=== PATIENT | male | born 1990 | race Two or more races ===

== ENCOUNTER 2017-01-11 21:02 | Emergency (ER) ==
[2017-01-11 21:12] VITALS: BP 157/71; BMI 24.3
[2017-01-11] MEDS ORDERED: TYLENOL PO STA (21:20)
--- NOTE | 2017-01-11 21:21 | ED.PDOC ---
General ED Provider: Dr. NICKY ROTH Chief Complaint: Fever Stated Complaint: been having fever since , hurting all over. has nausea vomitings on , but none after that. Time Seen by Physician: 21:19 Mode of Arrival: Walk-In Information Source: Patient Nursing and Triage Documentation Reviewed and Agree: Yes Miscellaneous Complaint Exam - Febrile Illness/Adult Complaint/Exam Symptoms Are: Still present Timing: Constant Episodes Lasting: Days Initial Severity: Moderate Current Severity: Mild Aggravating: Reports: Unknown Alleviating: Reports: None Associated Signs and Symptoms: Denies: Headache, Fluid intake, Short of air, Cough, Sore throat, Nausea, Vomiting, Chills, Diaphoresis, Dysuria, Arthralgia, Stiff neck, Myalgia, Rash, Altered mental status Related History: Reports: Similar episode Pseudomonas Risk Factors: Reports: None Serious Bacterial Infection Risk Factors: Reports: None Related Surgical History: None Specific Findings: Absent: Meningeal signs, Diaphoresis, Joint swelling, Erythema Differential Diagnoses: Sepsis, Viremia Review of Systems - Review Of Systems Constitutional: Reports: Malaise, Weakness Eyes: Reports: No symptoms Ears, Nose, Mouth, Throat: Reports: No symptoms Respiratory: Reports: No symptoms Cardiac: Reports: No symptoms GI: Reports: No symptoms : Reports: No symptoms Musculoskeletal: Reports: No symptoms Skin: Reports: No symptoms Neurological: Reports: No symptoms Endocrine: Reports: No symptoms Hematologic/Lymphatic: Reports: No symptoms All Other Systems: Reviewed and Negative Past Medical History - Past Medical History Previously Healthy: Yes Endocrine: Reports: None Cardiovascular: Reports: None Respiratory: Reports: None Hematological: Reports: None Gastrointestinal: Reports: None Genitourinary: Reports: None Neuro/Psych: Reports: None Musculoskeletal: Reports: None Cancer: Reports: None - Surgical History General Surgical History: Reports: None - Family History Family History: Reports: None - Social History Smoking Status: Never smoker Hx Substance Use: No Alcohol Screening: Occasionally Physical Exam - Physical Exam Appearance: Ill-appearing, No pain distress, Well-nourished Eyes: SEFERINO, EOMI, Conjunctiva clear ENT: Ears normal, Nose normal, Oropharynx normal Respiratory: Airway patent, Breath sounds clear, Breath sounds equal, Respirations nonlabored Cardiovascular: RRR, Pulses normal, No rub, No murmur GI/: Soft, Nontender, No masses, Bowel sounds normal, No Organomegaly Musculoskeletal: Normal strength, ROM intact, No edema, No calf tenderness Skin: Warm, Dry, Normal color Neurological: Sensation intact, Motor intact, Reflexes intact, Cranial nerves intact, Alert, Oriented Psychiatric: Affect appropriate, Mood appropriate Re-Evaluation - Re-Evaluation Time of Re-Evaluation: 22:28 Status: Improved Critical Care Note - Critical Care Note Total Time (mins): 0 Course - Course Hematology/Chemistry: 01/11/17 21:20 01/11/17 21:20 Orders, Labs, Meds: Lab Review 01/11/17 01/11/17 01/11/17 21:20 21:26 21:32 WBC 9.58 RBC 4.68 L Hgb 13.5 L Hct 40.4 L MCV 86.3 MCH 28.8 MCHC 33.4 RDW Coeff of Evan 13.5 Plt Count 193 Immature Gran % (Auto) 0.3 Neut % (Auto) 75.3 Lymph % (Auto) 14.9 [place] % (Auto) 9.0 Eos % (Auto) 0.2 Baso % (Auto) 0.3 Immature Gran # (Auto) 0.0 Neut # 7.2 H Lymph # 1.4 [place] # 0.9 Eos # 0.0 Baso # 0.0 Sodium 136 Potassium 4.1 Chloride 99 Carbon Dioxide 26 Anion Gap 15.1 BUN 12 Creatinine 1.23 H Estimated GFR (MDRD) 71.00 BUN/Creatinine Ratio 9.75 Glucose 116 H Lactic Acid 10.1 Calcium 8.6 Total Bilirubin 0.56 AST 41 H ALT 63 Alkaline Phosphatase 71 Total Protein 7.8 Albumin 3.5 Globulin 4.3 Albumin/Globulin Ratio 0.81 Procalcitonin 0.08 Urine Color Radha Urine Clarity Clear Urine pH 7.5 Ur Specific [place] 1.020 Urine Protein 1+ Urine Glucose (UA) Negative Urine Ketones Negative Urine Blood Trace-intact Urine Nitrite Negative Urine Bilirubin Negative Urine Urobilinogen >=8.0 Ur Leukocyte Esterase Negative Urine Microscopic RBC 2-5 Ur Squamous Epith Cells 2-5 Influenza A (Rapid) Negative Influenza B (Rapid) Negative Orders Category Date Time Status CBC W/ AUTO DIFF Stat LAB 01/11/17 21:20 Completed COMPREHENSIVE METABOLIC PANEL Stat LAB 01/11/17 21:20 Completed EHRLICHIA DNA, PCR Stat LAB 01/11/17 21:20 Received LACTIC ACID Stat LAB 01/11/17 21:20 Completed LYME, WESTERN BLOT, SERUM Stat LAB 01/11/17 21:20 Received PROCALCITONIN Stat LAB 01/11/17 21:20 Completed RAPID FLU A/B Stat LAB 01/11/17 21:26 Completed FRANCES PAULINO SPOTTED FEVER,IgM Stat LAB 01/11/17 21:20 Received UA [URINALYSIS C & S IF INDICATED] Stat LAB 01/11/17 21:32 Completed WEST NILE VIRUS PCR Stat LAB 01/11/17 21:20 Received Acetaminophen [Tylenol] MEDS 01/11/17 21:20 Discontinued 650 mg PO ONCE STA CXR [CHEST, 2 VIEWS PA & LAT] Stat RADS 01/11/17 21:20 Taken Medications Discontinued Medications Generic Name Dose Route Start Last Admin Trade Name Freq PRN Reason Stop Dose Admin Acetaminophen 650 mg 01/11/17 21:20 01/11/17 21:26 Tylenol PO 01/11/17 21:21 650 mg ONCE STA Administration Vital Signs: Temp Pulse Resp BP Pulse Ox 01/11/17 22:19 99.7 F H 01/11/17 21:02 102.7 F H 95 H 20 157/71 H 96 Departure - Departure Time of Disposition: 22:27 Disposition: HOME SELF-CARE Discharge Problem: Febrile illness Instructions: Viral Syndrome (ED) Condition: Stable Pt referred to PMD for follow-up: Yes Additional Instructions: INCREASE HYDRATION TYLENOL PRN F/U [facility] IN 3-4 DAYS Allergies/Adverse Reactions: Allergies No Known Allergies Allergy (Unverified 01/11/17 21:05) Home Medications: Ambulatory Orders 1 [No Reported Medications] 01/11/17 Disposition Discussed With: Patient, Family
[2017-01-11 21:29] LABS: BASOPHILS % (AUTO) 0.3 % (0.0-3.0); EOSINOPHILS % (AUTO) 0.2 % (0.0-7.0); HEMATOCRIT 40.4 % (42.0-52.0); HEMOGLOBIN 13.5 g/dl (14.0-18.0); IMMATURE GRANULOCYTE % (AUTO) 0.3 % (0.0-5.0); LYMPHOCYTES # (AUTO) 1.4 K/uL (0.60-3.4); LYMPHOCYTES % (AUTO) 14.9 (10.0-50.0); MEAN CORPUSCULAR HEMOGLOBIN 28.8 pg (27.0-31.0); MEAN CORPUSCULAR HGB CONC 33.4 (31.8-35.4); MEAN CORPUSCULAR VOLUME 86.3 fl (80.0-94.0); MONOCYTES # (AUTO) 0.9 K/uL (0.4-2.0); NEUTROPHILS # (AUTO) 7.2 K/ul (2.0-6.9); NEUTROPHILS % (AUTO) 75.3; PLATELET COUNT 193 10^3/uL (140-440); RED BLOOD COUNT 4.68 10^6/ul (4.70-6.10); WHITE BLOOD COUNT 9.58 K/ul (4.2-10.2)
[2017-01-11 21:38] LABS: BILIRUBIN,URINE Negative (NEGATIVE); KETONES,URINE Negative (NEGATIVE); LEUKOCYTE ESTERASE ,URINE Negative (NEGATIVE); NITRITE,URINE Negative (NEGATIVE); PH,URINE 7.5 (5-9); PROTEIN,URINE 1+ (NEGATIVE); URINE, BLOOD Trace-intact (NEGATIVE)
[2017-01-11 21:39] LABS: ADD URINE MICROSCOPIC YES
[2017-01-11 21:48] LABS: ALBUMIN 3.5 g/dL (3.4-5.0); ALBUMIN/GLOBULIN RATIO 0.81; ANION GAP 15.1; BILIRUBIN,TOTAL 0.56 mg/dL (0.00-1.20); CALCIUM 8.6 mg/dL (8.2-10.2); POTASSIUM 4.1 mmol/L (3.5-5.1); TOTAL PROTEIN 7.8 g/dL (6.4-8.2)
[2017-01-11 21:50] LABS: FLU INTERNAL QC INTERNAL QC VALID; RAPID FLU A NEGATIVE (NEGATIVE); RAPID FLU B NEGATIVE (NEGATIVE)
[2017-01-11 22:02] LABS: BUN/CREATININE RATIO 9.75; CREATININE 1.23 mg/dL (0.60-1.10)
[2017-01-11 22:19] VITALS: TEMP 99.7
--- NOTE | 2017-01-12 08:33 | DI ---
EXAM: Two-view chest HISTORY: Fever TECHNIQUE: Frontal and lateral views of the chest were obtained. FINDINGS: The heart is normal size. Lungs are clear. The pulmonary vasculature appears normal. Th e osseous structures and mediastinal contours are normal. IMPRESSION: No active cardiopulmonary disease.
[2017-01-15 10:37] LABS: IGG P18 AB Absent (.); IGG P23 AB Absent (.); IGG P28 AB Absent (.); IGG P30 AB Absent (.); IGG P39 AB Absent (.); IGG P41 AB Present (.); IGG P45 AB Present (.); IGG P58 AB Absent (.); IGG P66 AB Present (.); IGG P93 AB Absent (.); IGM P39 AB Absent (.); IGM P41 AB Absent (.)
[2017-01-16 07:51] LABS: LYME IGG WB INTERP Negative (.); LYME IGM WB INTERP Negative (.)
== END 2017-01-11 22:30 | disposition home or self-care (01) ==
LOC: ED 21:02
DX: R50.9 Fever, unspecified (principal)
CPT/HCPCS: 36415; 80053; 81001; 83605; 84145; 85025; 86617; 86757; 87798; 87804; 99283